=== PATIENT | female | born 1990 | race Caucasian/White ===

== ENCOUNTER 2016-04-03 12:20 | Emergency (ER) | payer OTHER ==
[2016-04-03 12:46] VITALS: BP 98/49
--- NOTE | 2016-04-03 13:03 | UC ---
Throat Pain/Nasal Shashank HPI - HPI Summary HPI Summary: COLD AFTER ROSA. RESOLVED BRIEFLY, NOW LAST FOUR DAYS HAS HAD SINUS PRESSURE, HEADACHE, EAR PAIN. NO FEVER. SON AND BOTH HAVE ANTIBIOTICS, IMPROVING. - History of Current Complaint Chief Complaint: UCRespiratory Stated Complaint: CONGESTION,BILATERAL EAR PAIN Time Seen by Provider: 04/03/16 12:32 Hx Obtained From: Patient Hx Last Menstrual Period: now Onset/Duration: Gradual Onset, Lasting Weeks, Still Present, Worse Since - LAST 4 DAYS Severity: Moderate Cough: Nonproductive Associated Signs & Symptoms: Positive: Hoarseness, Sinus Discomfort, Nasal Discharge - Epiglottits Risk Factors Epiglottis Risk Factors: Negative - Allergies/Home Medications Allergies/Adverse Reactions: Allergies Allergy/AdvReac Type Severity Reaction Status Date / Time Sulfa Drugs Allergy Severe seizures Verified 04/03/16 12:47 julieta kilgore patch Allergy Hives Uncoded 04/03/16 12:47 PMH/Surg Hx/FS Hx/Imm Hx Previously Healthy: Yes Cardiovascular History Of: Reports: Cardiac Disorders - heart murmur - Surgical History Surgical History: None - Family History Known Family History: Positive: Diabetes Negative: Cardiac Disease, Hypertension - Social History Occupation: Employed Full-time Lives: With Family Alcohol Use: None Substance Use Type: None Smoking Status (MU): Never Smoked Tobacco - Immunization History Most Recent Influenza Vaccination: none Review of Systems Constitutional: Negative Skin: Negative Eyes: Negative ENT: Ear Ache, Nasal Discharge Respiratory: Cough Cardiovascular: Negative Gastrointestinal: Negative Genitourinary: Negative Motor: Negative Neurovascular: Negative Musculoskeletal: Negative Neurological: Negative Psychological: Negative All Other Systems Reviewed And Are Negative: Yes Physical Exam Triage Information Reviewed: Yes Appearance: Well-Appearing, No Pain Distress, Well-Nourished Vital Signs: Initial Vital Signs Temp 98.1 F 04/03/16 12:43 Pulse 61 04/03/16 12:43 Resp 14 04/03/16 12:43 BP 98/49 04/03/16 12:43 Pulse Ox 100 04/03/16 12:43 Vital Signs Reviewed: Yes Eye Exam: Normal Eyes: Positive: Conjunctiva Clear ENT: Positive: Hearing grossly normal, Pharynx normal, Nasal congestion, TM dull Dental Exam: Normal Neck exam: Normal Neck: Positive: Supple Respiratory Exam: Normal Respiratory: Positive: Chest non-tender, Lungs clear, Normal breath sounds, No respiratory distress, No accessory muscle use Cardiovascular Exam: Normal Cardiovascular: Positive: RRR, No Murmur, Pulses Normal Abdominal Exam: Normal Abdomen Description: Positive: Nontender, No Organomegaly Musculoskeletal Exam: Normal Musculoskeletal: Positive: Strength Intact, ROM Intact Neurological Exam: Normal Psychological Exam: Normal Psychological: Positive: Normal Response To Family Skin Exam: Normal Throat Pain/Nasal Course/Dx - Differential Dx/Diagnosis Differential Diagnosis/HQI/PQRI: Pharyngitis, Sinusitis, URI Provider Diagnoses: SINUSITIS Discharge - Discharge Plan Condition: Stable Disposition: HOME Prescriptions: Amoxicillin/Clavulanate TAB* [Augmentin TAB 875*] 875 mg PO BID #20 tab Patient Education Materials: Sinusitis (ED) Referrals: Paulo Gamez DO [Primary Care Provider] -
== END 2016-04-03 13:02 | disposition home or self-care (01) ==
LOC: UCCORT 12:20
DX: J32.9 Chronic sinusitis, unspecified (principal); Z88.2 Allergy status to sulfonamides
CPT/HCPCS: 99212; G0463

== ENCOUNTER 2017-12-05 18:13 | Emergency (ER) | payer OTHER ==
[2017-12-05 19:15] VITALS: BP 107/52
[2017-12-05] MEDS ORDERED: Permethrin 5% CREAM* 1 APPLIC TUBE TOPICAL ONE (19:37)
--- NOTE | 2017-12-05 20:28 | UC ---
Skin Complaint HPI - HPI Summary HPI Summary: Pt c/o sudden onset of "itchy rash" on right arm/elbow that began immediately after putting on sweatshirt after purchasing it. Pt sates taht she noticed rash began a "few hours" after putting shirt on Pt removed sweatshirt, then wore it again and noticed rash on arm worsened and now has itchy rash to upper back and left upper thigh. Rash is not erythematous and is more itchy at night. Pt took benadryl once and reports no relief. - History of Current Complaint Chief Complaint: UCRash Time Seen by Provider: 12/05/17 19:20 Stated Complaint: RASH Hx Obtained From: Patient Hx Last Menstrual Period: now ?: No Onset/Duration: Sudden Onset, Lasting Days, Still Present, Worse Since - onset Skin Exposure Onset/Duration: Days Ago Timing: Constant Onset Severity: Mild Current Severity: Moderate Pain Intensity: 0 Pain Scale Used: 0-10 Numeric Location: Diffuse Character: Pruritus, Raised Aggravating Factor(s): Touch Alleviating Factor(s): Nothing Associated Signs & Symptoms: Positive: Rash - Allergy/Home Medications Allergies/Adverse Reactions: Allergies Allergy/AdvReac Type Severity Reaction Status Date / Time sulfa drugs Allergy Severe seizure Uncoded 12/05/17 19:16 julieta kilgore patch Allergy Hives Uncoded 12/05/17 19:16 Review of Systems Constitutional: Negative Skin: Rash Eyes: Negative ENT: Negative Respiratory: Negative Cardiovascular: Negative Gastrointestinal: Negative Genitourinary: Negative Motor: Negative Neurovascular: Negative Musculoskeletal: Negative Neurological: Negative Psychological: Negative Is Patient Immunocompromised?: No All Other Systems Reviewed And Are Negative: Yes PMH/Surg Hx/FS Hx/Imm Hx Previously Healthy: Yes - Surgical History Surgical History: None - Family History Known Family History: Positive: Diabetes Negative: Cardiac Disease, Hypertension - Social History Occupation: Works From/At Home Lives: With Family Alcohol Use: Rare Substance Use Type: None Smoking Status (MU): Never Smoked Tobacco Have You Smoked in the Last Year: No - Immunization History Most Recent Influenza Vaccination: none Physical Exam Triage Information Reviewed: Yes Appearance: Well-Appearing Vital Signs: Initial Vital Signs Temp 97.1 F 12/05/17 19:10 Pulse 56 12/05/17 19:10 Resp 15 12/05/17 19:10 BP 107/52 12/05/17 19:10 Pulse Ox 100 12/05/17 19:10 Vital Signs Reviewed: Yes Eye Exam: Normal ENT: Positive: Hearing grossly normal Dental Exam: Normal Neck exam: Normal Respiratory Exam: Normal Respiratory: Positive: No respiratory distress Musculoskeletal Exam: Normal Neurological Exam: Normal Psychological Exam: Normal Skin: Positive: rashes - raised, pin prick, non erythematous, maxim tracts. Course/Dx - Differential Diagnoses - Skin Complaint Differential Diagnoses: Allergic Reaction, Contact Dermatitis, Scabies - Diagnoses Provider Diagnoses: scabies Discharge - Sign-Out/Discharge Documenting (check all that apply): Patient Departure All imaging exams completed and their final reports reviewed: No Studies - Discharge Plan Condition: Stable Disposition: HOME Patient Education Materials: Scabies (ED) Referrals: Radha Stack MD [Primary Care Provider] - If Needed - Billing Disposition and Condition Condition: STABLE Disposition: Home
== END 2017-12-05 19:49 | disposition home or self-care (01) ==
LOC: UCCORT 18:13
DX: B86 Scabies (principal); Z88.8 Allergy status to other drugs, medicaments and biological substances
CPT/HCPCS: 99212; A9270-GY; G0463

== ENCOUNTER 2018-05-13 07:47 | Emergency (ER) | payer OTHER ==
[2018-05-13 07:56] VITALS: BP 113/64
--- NOTE | 2018-05-13 08:20 | UC ---
Ear Complaint HPI - HPI Summary HPI Summary: 27 yo female with URI symptoms x weeks now with severe ear pain 12 weeks decreased hearing L - History of Current Complaint Chief Complaint: UCEar Stated Complaint: LEFT EAR COMPLAINT Time Seen by Provider: 05/13/18 08:15 Hx Obtained From: Patient Hx Last Menstrual Period: 02/21/18 Onset/Duration: Gradual Onset, Lasting Hours Severity Initially: Severe Severity Currently: Severe Pain Intensity: 8 Pain Scale Used: 0-10 Numeric Aggravating Factors: Nothing Alleviating Factors: Nothing Associated Signs/Symptoms: Positive: Hearing Loss, URI Symptoms - Allergies/Home Medications Allergies/Adverse Reactions: Allergies Allergy/AdvReac Type Severity Reaction Status Date / Time sulfa drugs Allergy Severe seizure Uncoded 05/13/18 07:54 julieta kilgore patch Allergy Hives Uncoded 05/13/18 07:54 Home Medications: Home Medications 123/Iron/Folic/Omeg3s [One A Day Womens 28-0.8-235 mg] 1 cap PO DAILY 05/13/18 [History Confirmed 05/13/18] PMH/Surg Hx/FS Hx/Imm Hx Previously Healthy: Yes - Surgical History Surgical History: None - Family History Known Family History: Positive: Diabetes Negative: Cardiac Disease, Hypertension - Social History Alcohol Use: None Substance Use Type: None Smoking Status (MU): Never Smoked Tobacco Have You Smoked in the Last Year: No - Immunization History Most Recent Influenza Vaccination: none Review of Systems All Other Systems Reviewed And Are Negative: Yes Constitutional: Positive: Negative Skin: Positive: Negative Eyes: Positive: Negative ENT: Positive: Ear Ache, Sinus Congestion, Sinus Pain/Tenderness Respiratory: Positive: Cough Cardiovascular: Positive: Negative Genitourinary: Positive: Negative Motor: Positive: Negative Neurovascular: Positive: Negative Musculoskeletal: Positive: Negative Neurological: Positive: Negative Psychological: Positive: Negative Physical Exam Vital Signs: Initial Vital Signs Temp 98 F 05/13/18 07:53 Pulse 80 05/13/18 07:53 Resp 18 05/13/18 07:53 BP 113/64 05/13/18 07:53 Pulse Ox 100 05/13/18 07:53 Ear Complaint Course/Dx - Differential Dx/Diagnosis Provider Diagnosis: Left otitis media, Viral URI Discharge - Sign-Out/Discharge Documenting (check all that apply): Patient Departure All imaging exams completed and their final reports reviewed: No Studies - Discharge Plan Condition: Stable Disposition: HOME Prescriptions: Amoxicillin PO (*) [Amoxicillin 875 MG (*)] 875 mg PO BID #20 tab Patient Education Materials: Ear Infection (ED) Forms: *Work Release Referrals: Radha Stack MD [Primary Care Provider] - - Billing Disposition and Condition Condition: STABLE Disposition: Home
[2018-05-13] MEDS ORDERED: Acetaminophen TAB* 325 MG PO ONE (08:21)
== END 2018-05-13 08:27 | disposition home or self-care (01) ==
LOC: UCCORT 07:47
DX: O99.511 Diseases of the respiratory system complicating pregnancy, first trimester (principal); O99.89 Other specified diseases and conditions complicating pregnancy, childbirth and the puerperium; H66.92 Otitis media, unspecified, left ear; J06.9 Acute upper respiratory infection, unspecified; Z88.2 Allergy status to sulfonamides; Z88.6 Allergy status to analgesic agent; Z3A.12 12 weeks gestation of pregnancy
CPT/HCPCS: 99212; A9270-GY; G0463

== ENCOUNTER 2018-11-24 01:12 | Inpatient (IN) | payer OTHER ==
[2018-11-24] MEDS ORDERED: Dibucaine 1% 28.35 GM TUBE PR PRN (01:48)
[2018-11-24] MEDS ORDERED: Glycerin ADULT SUPP PR PRN (01:48)
[2018-11-24] MEDS ORDERED: Lactated Ringers 1000 ML Bag* 1,000 ML IV ONE (01:51)
[2018-11-24] MEDS ORDERED: Buffered Lidocaine 1% SYRIN* 1 ML/SYRINGE INTRADERM ONE (01:51)
[2018-11-24] MEDS ORDERED: Lactated Ringers 1000 ML Bag* 1,000 ML IV SCH ×2 (02:00)
[2018-11-24] MEDS: Witch Hazel PAD* JAR TOPICAL PRN (02:09)
[2018-11-24] MEDS: Ibuprofen TAB* 600 MG PO PRN ×4 (02:09→21:24)
[2018-11-24] MEDS: Acetaminophen TAB* 325 MG PO PRN ×4 (02:09→19:50)
--- NOTE | 2018-11-24 02:10 | HP ---
General Information - Reason for Visit Pt reports contractions increasing in strength and frequency - General Information Maternal Age: 28 Grav: 2 Para: 1 SAB: 0 IEA: 0 Determined By: Early Ultrasound Maternal Blood Type and Rh: A Positive - Results this Serology/RPR Result: Non-Reactive Rubella Result: Immune HBsAg Result: Negative HIV Result: Negative GBS Culture Result: Negative Past Medical History Delivery History: Hx Uncomplicated Vaginal Delivery Pertinent Past Medical History: See Records - heart murmur, depression / anxiety Pertinent Past Surgical History: None Pertinent Family History: Non-Contributory - Antepartal Records Antepartal Records: Reviewed, Uncomplicated Review of Systems Constitutional: Uncomfortable CV Complaint: No Respiratory: Shortness of Breath: No Gastrointestinal: No Nausea/Vomiting, Normal Bowel Movement Genitourinary: No Dysuria, No Bleeding, No Leaking Fluid Musculoskeletal: No Epigastric Pain, Contractions Neurological: No Headache, No Visual Changes Movement: Normal Exam Allergies/Adverse Reactions: Allergies sulfa drugs Allergy (Severe, Uncoded 11/24/18 01:45) seizure julieta kilgore patch Allergy (Uncoded 11/24/18 01:45) Hives Pt involuntarily pushing soon after arrival, vital signs not taken - Measurements Height: 5 ft 3 in Weight: 63.503 kg Weight in lbs: 140.141901 Body Mass Index (BMI): 24.7 Pre- Weight: 57.606 kg Weight Gained This : 13 lbs and 0 ozs - Exam Breast: Breast Exam Deferred CVA: No CVA Tenderness Extremities: No Edema Heart: Normal Rhythm/Heart Sounds HEENT: No Significant Findings Lungs: Clear Bilaterally Rectal: Rectal Exam Deferred Reflexes: DTR 2+ Thyroid: No Thyromegaly - Abdominal Exam Abdomen Exam: Non-Tender, Fundal Height Consistent with Dates - Ultrasound/Biophysical Profile Ultrasound Status: Not Done Targeted Exam Findings See L&D Outpatient Visit Provider Note for Findings: N/A Estimated Weight: 6.5# Cervical Exam: Complete Effacement: Complete Station: +2 Presenting Part: Vertex Membrane Status: SROM Amniotic Fluid Evaluation: Gross Rupture Bleeding/Discharge: Bloody Show EFM Findings - External Monitor Findings Baseline Heart Rate: 125 External Monitor Findings: Accelerations Present, Variability Moderate External Monitor Findings Comment: infant with prolonged deceleration into 80's- 90s as pt began to push Contractions: Regular, Strong, 45-90 Seconds Assessment/Plan - Assessment 28 year old at 40 3/7 weeks gestation in active labor, complete and pushing involuntarily - Plan Plan: Admit - Anticipate Vaginal Delivery - Date/Time of Admission Date of Admission: 11/24/18 Time of Admission: 01:14
--- NOTE | 2018-11-24 02:17 | PROCNOTE ---
[facility]: Delivery Note - Delivery A Date of : 11/24/18 Time of : 01:31 [place] Sex: Male Weight at : 2.948 kg Score 1 Minute: 8 Score 5 Minutes: 9 Gestational Age in Weeks and Days at Delivery: Missing required information. Delivery Method: Spontaneous Vaginal Labor: Spontaneous Did Patient attempt ?: N/A, No Previous Amniotic Fluid: Clear Estimated Blood Loss: 100 Anesthesia/Analgesia: None Delivered By: America Buchanan Nursery Level of Nursery: Regular/Bedside - Perineum Perineal Injury: None/Intact Perineal Repair: None - Events Delivery Events of Note: Precipitous Delivery, Supplemental O2 to Mother - Additional Delivery Notes Additional Delivery Notes: [facility] in active [facility] and experiencing urge to push. Pt examined and found to be fully dilated. Pt soon began pushing spontaneously with good descent. FHR deceleration observed as baby descended and O2 applied to pt via face mask. Pt soon brought to [facility] and was coached through slow, controlled delivery of the head. Nuchal cord noted, too tight to reduce, 's body delivered and cord reduced at that time. to maternal abdomen with vigorous cry, good tone, FHR > 100. After cord pulsation ceased, cord clamped x2 and cut by infant's father. Placenta soon followed, spontaneously and jannette side. Fundus firm, bleeding minimal. Perineum examined , found to be intact. at this time. Mother and infant stable, anticipate normal course.
[2018-11-24] MEDS ORDERED: Ammonia Inhalant* 1 EA AMP ONE (04:02)
[2018-11-24] MEDS: Docusate CAP* 100 MG PO SCH ×3 (08:16→21:24)
[2018-11-25] MEDS: Ibuprofen TAB* 600 MG PO PRN (05:07)
[2018-11-25 07:43] VITALS: BP 108/51
[2018-11-25] MEDS: Acetaminophen TAB* 325 MG PO PRN (07:43)
[2018-11-25] MEDS: Docusate CAP* 100 MG PO SCH (07:43)
[2018-11-25] MEDS: Witch Hazel PAD* JAR TOPICAL PRN (07:43)
[2018-11-25 08:26] LABS: ABS Basophils 0.1 10^3/ul (0-0.2); ABS Eosinophils 0.2 10^3/ul (0-0.6); ABS Lymphocytes 2.3 10^3/ul (1.0-4.8); ABS Monocytes 0.6 10^3/ul (0-0.8); ABS Neutrophils 6.6 10^3/ul (1.5-7.7); Eosinophil % 1.6 %; Hematocrit 36 % (35-47); Hemoglobin 12.3 g/dL (12.0-16.0); Lymphocyte % 23.6 %; Mean Corpuscular HGB Conc 34 g/dL (31-36); Mean Corpuscular Hemoglobin 32 pg (27-31); Mean Corpuscular Volume 94 fL (80-97); Mean Platelet Volume 10.5 fL (7.4-10.4); Nucleated Red Blood Cells % 0.1; Platelet Count 147 10^3/uL (150-450); Red Blood Count 3.81 10^6 /uL (3.70-4.87); Red Cell Distribution Width 13 % (10-15); White Blood Count 9.7 10^3/uL (3.5-10.8)
[2018-11-25] MEDS ORDERED: Ferrous Gluconate TAB* 324 MG TAB PO SCH (09:00)
== END 2018-11-25 13:40 | disposition home or self-care (01) | DRG 560 ==
LOC: MCHOBOUT 01:12 → MCHOB 01:22
PROVIDERS: ADMIT Midwife; ATTEND Midwife
PROC: 10E0XZZ Delivery of Products of Conception, External Approach (ICD-10-PCS; principal; 2018-11-24)
PROC: 4A1HXCZ Monitoring of Products of Conception, Cardiac Rate, External Approach (ICD-10-PCS; 2018-11-24)
DX: O76 Abnormality in fetal heart rate and rhythm complicating labor and delivery (principal); Z37.0 Single live birth; O48.0 Post-term pregnancy; Z3A.40 40 weeks gestation of pregnancy; O69.1XX0 Labor and delivery complicated by cord around neck, with compression, not applicable or unspecified; O62.3 Precipitate labor; O90.89 Other complications of the puerperium, not elsewhere classified; R25.2 Cramp and spasm; Z88.2 Allergy status to sulfonamides; Z88.4 Allergy status to anesthetic agent
CPT/HCPCS: 36415; 85025; A9270-GY